=== PATIENT | male | born 1950 | race Caucasian/White ===

== ENCOUNTER 2016-12-03 11:35 | Emergency (ER) | payer BC ==
[2016-12-03 11:43] VITALS: BP 129/84
[2016-12-03] MEDS ORDERED: Ibuprofen TAB* 800 MG PO ONE (14:22)
[2016-12-03] MEDS ORDERED: Tetan/Diph/Pertus SYR(Tdap)* 0.5 ML SYR(BOOSTRIX) use SYR IM ONE (14:22)
[2016-12-03] MEDS ORDERED: Cephalexin CAP* 500 MG PO ONE ×2 (14:23→17:24)
--- NOTE | 2017-01-10 09:10 | ED ---
Upper Extremity Pain - HPI Summary HPI Summary: Pt here w/ Rt hand laceration from hitting it on a [place] fence pole earlier today. Was hammering in the pole when his hand slipped and got cut on the edge of the pole. Denies numbness, tingling, weakness. Unsure of last tetanus vaccine. - History of Current Complaint Chief Complaint: EDLacSutureRecheck Stated Complaint: RT HAND LAC Time Seen by Provider: 12/03/16 13:51 Hx Obtained From: Patient - Allergies/Home Medications Allergies/Adverse Reactions: Allergies Allergy/AdvReac Type Severity Reaction Status Date / Time Shellfish Allergy Allergy Anaphylatic Verified 12/03/16 11:39 Shock PMH/Surg Hx/FS Hx/Imm Hx Previously Healthy: Yes Endocrine/Hematology History: Denies: Hx Anticoagulant Therapy, Hx Blood Disorders, Autoimmune Disease - Immunization History Immunizations Up to Date: Unable to Obtain/Confirm Infectious Disease History: No Infectious Disease History: Denies: Hx of Known/Suspected MRSA, Traveled Outside the [place] in Last 30 Days - Social History Occupation: Retired Lives: With Family Alcohol Use: None Hx Substance Use: No Substance Use Type: Reports: None Smoking Status (MU): Unknown if Ever Smoked Review of Systems Constitutional: Negative Negative: Vomiting, Nausea Positive: no symptoms reported Musculoskeletal: Negative Skin: Other - see HPI Neurological: Negative Psychological: Normal All Other Systems Reviewed And Are Negative: Yes Physical Exam Triage Information Reviewed: Yes Vital Signs On Initial Exam: Initial Vitals Temp Pulse Resp BP Pulse Ox 98 F 88 16 129/84 97 12/03/16 11:40 12/03/16 11:40 12/03/16 11:40 12/03/16 11:40 12/03/16 11:40 Vital Signs Reviewed: Yes Appearance: Positive: Well-Appearing, No Pain Distress, Well-Nourished Skin: Positive: Warm - laceration over Rt hand Head/Face: Positive: Normal Head/Face Inspection ENT: Positive: Hearing grossly normal Respiratory/Lung Sounds: Positive: Breath Sounds Present Cardiovascular: Positive: Pulses are Symmetrical in both Upper and Lower Extremities Musculoskeletal: Positive: Normal, Strength/ROM Intact Neurological: Positive: Normal, Sensory/Motor Intact, Alert, Oriented to Person Place, Time, CN Intact II-III Psychiatric: Positive: Normal Diagnostics - Vital Signs Vital Signs Temp Pulse Resp BP Pulse Ox 12/03/16 17:07 88 12/03/16 11:40 98 F 88 16 129/84 97 - Laboratory Lab Statement: Any lab studies that have been ordered have been reviewed, and results considered in the medical decision making process. Course/Dx - Diagnoses Provider Diagnoses: Laceration of right hand Discharge - Discharge Plan Condition: Stable Disposition: HOME Prescriptions: Cephalexin CAP* [Keflex CAP*] 500 mg PO QID #40 cap Patient Education Materials: Care For Your Stitches (ED), Laceration (ED) Referrals: Nathan Uribe MD [Medical Doctor] - Additional Instructions: Keep dressing clean, dry and intact for 48 hours. After this time, you may remove the dressing - gently wash daily with soap and water - rinse well and pat dry with clean cloth then reapply triple antibiotic ointment and reapply clean gauze with LORENZO wrap. Rest, ice, elevate - if you try to use your hand, you may rupture your sutures. If you do not keep it elevated, it may swelling and bleed. You may alternate ibuprofen with acetaminophen for pain. Complete antibiotics. You may take probiotics in between doses to prevent diarrhea. and follow-up with hand specialist this week. Call tomorrow to schedule appointment. Your suture may be removed in 10 days or when hand specialist decides. *If you develop redness, swelling, streaking, purulent drainage or fever, seek medical attention sooner.
== END 2016-12-03 17:10 | disposition home or self-care (01) ==
LOC: ED 11:35
DX: S61.411A Laceration without foreign body of right hand, initial encounter (principal); W45.8XXA Other foreign body or object entering through skin, initial encounter; Y93.9 Activity, unspecified; Y92.9 Unspecified place or not applicable
CPT/HCPCS: 90471; 90715; 99282; A9270-GY

== ENCOUNTER 2018-10-24 06:26 | Inpatient (IN) | payer MEDICARE ==
--- NOTE | 2018-10-11 17:32 | HP ---
Amended report to enter cosigning physician. HISTORY AND PHYSICAL: DATE OF SURGERY: 10/24/18 DATE OF OFFICE VISIT: 10/11/18 SURGEON: Hope Shah MD* (dictated by YESSENIA Alvares). PROCEDURE: Left total hip arthroplasty. CHIEF COMPLAINT: Left hip pain. HISTORY OF PRESENT ILLNESS: Mr. Dawkins is a 68-year-old gentleman with continued complaints of left hip pain. He has failed conservative treatment and elected to proceed with a left total hip arthroplasty. PAST MEDICAL HISTORY: Basal cell carcinoma. PAST SURGICAL HISTORY: Removal of basal cell carcinoma from the nose. CURRENT MEDICATIONS: None. ALLERGIES: None. FAMILY HISTORY: Cancer. SOCIAL HISTORY: He is a 68-year-old gentleman lives with his . He does not smoke or use drugs or alcohol. REVIEW OF SYSTEMS: A complete 14-point review of systems was reviewed with the patient and it was all negative and noncontributory. He denies any history of DVT, PE, hepatitis, HIV or anesthesia problems. PHYSICAL EXAMINATION GENERAL: Well developed, well nourished in no acute distress. VITAL SIGNS: He stands 5 feet 9 inches tall, weighs 215 pounds, his blood pressure is 126/78, heart rate is 104. HEENT: Normocephalic, atraumatic. NECK: Supple. No palpable lymph nodes. PULMONARY: Lungs are clear to auscultation bilaterally. CARDIO: Regular rate and rhythm. Strong S1 and S2. ABDOMEN: Soft, nontender, nondistended. NEUROLOGIC: He is alert and oriented x3. MUSCULOSKELETAL: Left lower extremity, skin is intact. There are no open wounds or abrasions. He has 80 degrees of hip flexion. He lacks 15 degrees from neutral and has a 0 degrees of internal rotation, 20 degrees of external rotation. He is able to dorsiflex and plantarflex. He has a 2+ dorsalis pedis pulses, and intact sensation. ASSESSMENT AND PLAN: Mr. Dawkins is a 68-year-old gentleman with endstage osteoarthritis of the left hip. He has failed conservative management and elected to proceed with a left total hip arthroplasty. The surgery is scheduled for 10/24/[address] Shah discussed the risks and benefits of the surgery on today's visit. All of his questions are answered. He will follow with Dr. Shah in 2 weeks after the surgery. YESSENIA ALVARES [id number]/[facility] #: [id number] [facility]ITALEaston
[~2018-10-24 06:26] MED LIST: Buffered Lidocaine 1% SYRIN* 1 ML/SYRINGE INTRADERM ONE; Lactated Ringers 1000 ML Bag* 1,000 ML IV SCH; Tranexamic Acid 1,000 MG in NS 0.9% 50 ML* (outpatient use) IV SCH
--- OUTSIDE RECORDS SUMMARY | 2018-10-24 06:30 | XMS REPORT | Continuity of Care Document ---
:1950 External Reference #:[id number] Author Name Cristy Hernandez Care Team Providers Name Role Phone Ángel Sotelo MD Primary Care Physician Unavailable Payers Date Identification Numbers Payment Provider Subscriber Policy Number: [id number] Medicare Nathan Dawkins PayID: [id number] [address] [place] [address] Policy Number: [id number] [facility] Nathan Dawkins PayID: [id number] [address] [place] [address] Problems Active Problems Provider Date Localized, primary osteoarthritis of the pelvic Hopewanda Shah M.D. Onset: 10/2018 region and thigh Family History Date Family Member(s) Observation Comments General Cancer Social History Type Date Description Comments Sex Unknown Lives With Spouse Occupation [employer] E[employer] Use Never used alcohol Tobacco Use Start: Unknown End: Patient is a former smoker Unknown Smoking Status Reviewed: 10/11/18 Patient is a former smoker Exercise Type/Frequency Exercises sporadically Allergies, Adverse Reactions, Alerts Active Allergies Reaction Severity Comments Date Shellfish-Derived Products 12/05/2016 Iodine 12/05/2016 Medications Active Medications SIG Qnty Indications Ordering Provider Date No Active Medications Unknown 10/11/2018 History Medications Cephalexin 1 tab by mouth four Unknown - 12/11/2016 500mg Capsules times a day Metformin HCL Unknown - 10/10/2018 500mg Tablets Vital Signs Date Vital Result Comment 10/11/2018 11:37am Height 69 inches 5'9" Weight 215.50 lb Heart Rate 104 /min BP Systolic 126 mmHg BP Diastolic 78 mmHg Respiratory Rate 18 /min Pain Level 5 BMI (Body Mass Index) 31.8 kg/m2 09/23/2018 8:58am Height 69 inches 5'9" Weight 215.00 lb Heart Rate 78 /min BP Systolic 120 mmHg BP Diastolic 76 mmHg Respiratory Rate 12 /min Pain Level 5 BMI (Body Mass Index) 31.7 kg/m2 09/11/2018 1:37pm Height 69 inches 5'9" Weight 210.00 lb Heart Rate 110 /min Body Temperature 96.2 F O2 % BldC Oximetry 97 % BMI (Body Mass Index) 31.0 kg/m2 12/20/2016 3:47pm Height 70 inches 5'10" Weight 220.00 lb Heart Rate 85 /min Respiratory Rate 15 /min Body Temperature 97.1 F Pain Level 0 BMI (Body Mass Index) 31.6 kg/m2 12/12/2016 1:43pm Height 70 inches 5'10" Weight 220.00 lb Heart Rate 76 /min BP Systolic 130 mmHg BP Diastolic 72 mmHg Respiratory Rate 18 /min Body Temperature 95.7 F Pain Level 0 BMI (Body Mass Index) 31.6 kg/m2 12/05/2016 3:48pm Height 70 inches 5'10" Weight 220.50 lb Heart Rate 74 /min BP Systolic 128 mmHg BP Diastolic 76 mmHg Respiratory Rate 18 /min Body Temperature 97.9 F Pain Level 2 BMI (Body Mass Index) 31.6 kg/m2 Encounters Type Date Location Provider Dx Diagnosis Office Visit 09/23/2018 [facility] Hope Shah, M16.12 Unilateral primary 9:00a [facility] [place] osteoarthritis, left hip M25.552 Pain in left hip Office Visit 09/11/2018 [facility] Marcell Armstrong, M16.12 Unilateral primary 1:30p [facility], left [facility] hip Office Visit 11/14/2017 [facility] Marlon L82.1 Other seborrheic 4:10p MD [place] keratosis L21.8 Other seborrheic dermatitis D22.9 Melanocytic nevi, unspecified L30.8 Other specified dermatitis Office Visit 12/20/2016 2:45p [facility] [email or web address] without foreign [facility] body of right hand, subs encntr Office Visit 12/12/2016 1:45p [facility] without foreign [facility] body of right hand, subs encntr Office Visit 12/05/2016 3:15p [facility] Nathan S61.[facility] without foreign [facility] body of right hand, init encntr Plan of Treatment Future Appointment(s):11/08/2018 8:45 am - Hope Shah M.D. at [facility]10/24/2018 11:30 am - Hope Shah M.D. at [facility]10/11/2018 - Hope Shah M.D.M16.12 Unilateral primary osteoarthritis, left hipFollow up:Follow up: 2 weeks after wxciaocH51.552 Pain in left hip
--- OUTSIDE RECORDS SUMMARY | 2018-10-24 06:30 | XMS REPORT | Continuity of Care Document ---
:1950 External Reference #:[id number] Author Name Ángel Sotelo MD Address [address] [place] [address] Care Team Providers Name Role Phone Ángel Sotelo MD Care Team Information Shared Services Manager Unavailable Payers Date Identification Numbers Payment Provider Subscriber Effective: 2016 [facility] Number: [id number] [facility] Expires: 2017 Group Name: BC/BS of [facility] [address] [address] PayID: [id number] KEENA Mcmahon [id number] Effective: 2017 Policy Number: [id number] Medicare - Bswny d Nathan Dawkins PayID: [id number] [address] [place] [address] Effective: 2017 Policy Number: [facility] Medicare Nathan Dawkins [id number] Supplement PayID: [id number] [facility] [address] [place] [address] Onset: 2017 Policy Number: [id number] [employer] Nathan Dawkins PayID: [id number] [address] [place] [address] Family History Date Family Member(s) Observation Comments General Alcoholism General Liver Disease Dad of cirrhosis. General Cancer, Lung Sister is doing well at this point after lobectomy General Malignant Melanoma 3 siblings with melanoma General sepsis brother - "a long time ago" General Heart Disease brother - CT General Cancer, Pancreatic brother Social History Type Date Description Comments Sex Unknown Marital Status Lives With Female Partner Occupation Construction - Retired Tobacco Use Start: Unknown End: Former Cigarette Smoker Quit 15 YA. Started age 22. Smoked 2 PPD for 30 years. ETOH Use Has consumed alcohol in Former heavy alcohol the past user 30+ years ago, now nondrinker. Tobacco Use Start: Unknown End: Patient is a former Unknown smoker Smoking Status Reviewed: 07/26/18 Patient is a former smoker Exercise Exercises sporadically rare additional Type/Frequency exercise but does walk his dog everyday Allergies, Adverse Reactions, Alerts Active Allergies Reaction Severity Comments Date Shellfish-derived Products 07/26/2016 Medications Active Medications SIG Qnty Indications Ordering Provider Date No Active Medications Unknown 09/30/2018 History Medications No Active Medications Unknown 07/26/2018 - 07/26/2018 Metformin HCL take 1 tablet 60tabs Ángel 07/26/2018 - 500mg by mouth two MD Ashleigh 09/30/2018 Tablets times daily Ventolin HFA inhale two 18units J20.9 Shawnti R. 05/16/2018 - puffs by mouth JERMAINE Franco 07/26/2018 108(90Base) mcg/Act every 4 hours Aerosol as needed for wheeze Simvastatin Take One Tablet 30tabs E78.5 Ángel 08/16/2016 - 20mg By Mouth Every MD Ashleigh 10/31/2017 Tablets Day Keflex 1 tab by mouth Unknown - 500mg Capsules 4 times a day 01/25/2018 for 5 days Immunizations CPT Code Status Date Vaccine Lot # [id number] Given 07/26/2018 Pneumovax 23 (PPSV23) 65+ years or high risk 2 to [id number] 66 year old 75127 Given 07/26/2018 Influenza Virus Vaccine, Quadrivalent, 3 Yr > Quad, Preserv Free 15885 Given 2017 Prevnar-13 Pneumococcal Conjugate Vaccine [id number] 75769 Given 2017 Influenza Vaccine High Dose PF [id number] 54269 Given 12/19/2016 Tdap (Adacel) 55863 Given 01/27/2016 Influenza Virus Vaccine, Quadrivalent, 3 Yr > Quad, Preserv Free Vital Signs Date Vital Result Comment 09/30/2018 11:05am Weight 217.00 lb Weight 98.431 kg BP Systolic 124 mmHg BP Diastolic 80 mmHg Heart Rate 98 /min Body Temperature 98.1 F Respiratory Rate 16 /min O2 % BldC Oximetry 98 % 08/12/2018 2:14pm Weight 215.12 lb Weight 97.581 kg BP Systolic 122 mmHg BP Diastolic 80 mmHg Heart Rate 107 /min Body Temperature 97.6 F Respiratory Rate 16 /min O2 % BldC Oximetry 97 % 07/26/2018 3:15pm Weight 223.38 lb Weight 101.323 kg BP Systolic 126 mmHg BP Diastolic 78 mmHg Heart Rate 100 /min Body Temperature 97.5 F Respiratory Rate 18 /min Height 68.5 inches 5'8.50" BMI (Body Mass Index) 33.5 kg/m2 O2 % BldC Oximetry 97 % 05/16/2018 9:01am Weight 216.00 lb Weight 97.978 kg BP Systolic 140 mmHg BP Diastolic 78 mmHg Heart Rate 105 /min Body Temperature 96.1 F O2 % BldC Oximetry 97 % 01/25/2018 2:55pm Weight 211.00 lb Weight 95.710 kg BP Systolic 128 mmHg BP Diastolic 80 mmHg Heart Rate 90 /min Body Temperature 97.5 F Respiratory Rate 16 /min O2 % BldC Oximetry 97 % 10/31/2017 3:34pm Weight 223.00 lb Weight 101.153 kg BP Systolic 129 mmHg BP Diastolic 82 mmHg Heart Rate 96 /min Body Temperature 98.0 F O2 % BldC Oximetry 97 % 10/25/2017 3:15pm Weight 225.00 lb Weight 102.060 kg BP Systolic 152 mmHg BP Diastolic 94 mmHg Heart Rate 97 /min Body Temperature 98.7 F O2 % BldC Oximetry 98 % 10/17/2017 7:56am Weight 221.00 lb Weight 100.246 kg BP Systolic 122 mmHg BP Diastolic 78 mmHg Heart Rate 72 /min Body Temperature 97.3 F Respiratory Rate 16 /min 07/25/2017 8:03am Weight 222.00 lb Weight 100.699 kg BP Systolic 122 mmHg BP Diastolic 74 mmHg Heart Rate 70 /min Body Temperature 96.9 F Respiratory Rate 16 /min Height 69.5 inches 5'9.50" BMI (Body Mass Index) 32.3 kg/m2 O2 % BldC Oximetry 98 % 2017 9:31am Weight 214.00 lb Weight 97.070 kg BP Systolic 122 mmHg BP Diastolic 78 mmHg Heart Rate 68 /min Body Temperature 97.2 F Respiratory Rate 16 /min 08/16/2016 11:44am Weight 222.00 lb Weight 100.699 kg BP Systolic 112 mmHg BP Diastolic 76 mmHg Heart Rate 74 /min Body Temperature 96.6 F Respiratory Rate 16 /min O2 % BldC Oximetry 99 % 07/26/2016 8:58am Weight 216.00 lb Weight 97.978 kg BP Systolic 120 mmHg BP Diastolic 70 mmHg Heart Rate 76 /min Body Temperature 98.2 F Respiratory Rate 12 /min Height 68 inches 5'8" BMI (Body Mass Index) 32.8 kg/m2 Results Test Date Facility Test Result H/L Range Note Laboratory test 07/26/2018 In House Lab Hemoglobin A1c 5.1 finding [phone] - Poct CBC Auto Diff 01/14/2018 [facility] White Blood 4.7 10^3/uL N 3.5-10.8 [phone] Count Red Blood Count 4.83 10^6/uL N 4.00-5.40 Hemoglobin 13.9 g/dL Low 14.0-18.0 Hematocrit 41 % Low 42-52 Mean Corpuscular Volume 84 fL N 80-94 Mean Corpuscular Hemoglobin 29 pg N 27-31 Mean Corpuscular HGB Conc 34 g/dL N 31-36 Red Cell Distribution Width 13 % N 10.5-15 Platelet Count 187 10^3/uL N 150-450 Mean Platelet Volume 7.7 um3 N 7.4-10.4 Abs Neutrophils 2.6 10^3/uL N 1.5-7.7 Abs Lymphocytes 1.2 10^3/uL N 1.0-4.8 Abs Monocytes 0.6 10^3/uL N 0-0.8 Abs Eosinophils 0.2 10^3/uL N 0-0.6 Abs Basophils 0 10^3/uL N 0-0.2 Abs Nucleated RBC 0 10^3/uL Granulocyte % 56.0 % N 38-83 Lymphocyte % 26.3 % N 25-47 Monocyte % 12.3 % High 0-7 Eosinophil % 4.7 % N 0-6 Basophil % 0.7 % N 0-2 Nucleated Red Blood Cells % 0.2 Comp Metabolic Panel 01/14/2018 [facility] Sodium 140 mmol/L N 135-145 [phone] Potassium 4.2 mmol/L N 3.5-5.0 Chloride 108 mmol/L N 101-111 Co2 Carbon Dioxide 26 mmol/L N 22-32 Anion Gap 6 mmol/L N 2-11 Glucose 108 mg/dL High 70-100 Blood Urea Nitrogen 15 mg/dL N 6-24 Creatinine 0.80 mg/dL N 0.67-1.17 BUN/Creatinine Ratio 18.8 N 8-20 Calcium 9.0 mg/dL N 8.6-10.3 Total Protein 6.4 g/dL N 6.4-8.9 Albumin 3.9 g/dL N 3.2-5.2 Globulin 2.5 g/dL N 2-4 Albumin/Globulin Ratio 1.6 N 1-3 Total Bilirubin 0.50 mg/dL N 0.2-1.0 Alkaline Phosphatase 63 U/L N 34-104 Alt 22 U/L N 7-52 Ast 16 U/L N 13-39 Egfr Non- 97.0 >60 Egfr 117.4 >60 1 Lipid Profile 01/14/2018 [facility] Triglycerides 115 mg/dL 2 (Trig/Chol/HDL) [phone] Cholesterol 174 mg/dL 3 HDL Cholesterol 33.8 mg/dL 4 LDL Cholesterol 117 mg/dL 5 Liver Function 01/14/2018 [facility] Direct 0.10 mg/ dL N 0.03-0.18 Panel [phone] Bilirubin Indirect Bilirubin 0.4 mg/dL N 0.3-1.0 Laboratory test 01/14/2018 [facility] Erythrocyte Sed 12 mm/Hr N 0-40 6 finding [phone] Rate Laboratory test 10/17/2017 [facility] Lyme Disease Negative Negative 7 finding [phone] Serology Erythrocyte Sed Rate 10 mm/Hr N 0-40 8 Comp Metabolic Panel 10/17/2017 [facility] Sodium 141 mmol/L N 139-145 [phone] Potassium 4.0 mmol/L N 3.5-5.0 Chloride 108 mmol/L N 101-111 Co2 Carbon Dioxide 27 mmol/L N 22-32 Anion Gap 6 mmol/L N 2-11 Glucose 104 mg/dL High 70-100 Blood Urea Nitrogen 15 mg/dL N 6-24 Creatinine 0.87 mg/dL N 0.67-1.17 BUN/Creatinine Ratio 17.2 N 8-20 Calcium 8.9 mg/dL N 8.6-10.3 Total Protein 6.6 g/dL N 6.4-8.9 Albumin 4.0 g/dL N 3.2-5.2 Globulin 2.6 g/dL N 2-4 Albumin/Globulin Ratio 1.5 N 1-3 Total Bilirubin 0.50 mg/dL N 0.2-1.0 Alkaline Phosphatase 55 U/L N 34-104 Alt 22 U/L N 7-52 Ast 18 U/L N 13-39 Egfr Non- 88.1 >60 Egfr 113.3 >60 9 CBC Auto Diff 10/17/2017 [facility] White Blood 5.3 10^3/uL N 3.5-10.8 [phone] Count Red Blood Count 4.74 10^6/uL N 4.0-5.4 Hemoglobin 13.7 g/dL Low 14.0-18.0 Hematocrit 40 % Low 42-52 Mean Corpuscular Volume 85 fL N 80-94 Mean Corpuscular Hemoglobin 29 pg N 27-31 Mean Corpuscular HGB Conc 34 g/dL N 31-36 Red Cell Distribution Width 13 % N 10.5-15 Platelet Count 211 10^3/uL N 150-450 Mean Platelet Volume 7.2 um3 Low 7.4-10.4 Abs Neutrophils 2.9 10^3/uL N 1.5-7.7 Abs Lymphocytes 1.5 10^3/uL N 1.0-4.8 Abs Monocytes 0.6 10^3/uL N 0-0.8 Abs Eosinophils 0.2 10^3/uL N 0-0.6 Abs Basophils 0.1 10^3/uL N 0-0.2 Abs Nucleated RBC 0 10^3/uL Granulocyte % 54.8 % N 38-83 Lymphocyte % 28.2 % N 25-47 Monocyte % 12.0 % High 0-7 Eosinophil % 3.9 % N 0-6 Basophil % 1.1 % N 0-2 Nucleated Red Blood Cells % 0.1 Laboratory test 10/17/2017 [facility] C Reactive 6.49 mg/L High < 5.00 10 finding [phone] Protein Creatine Kinase(CK) 154 U/L N 10-223 11 Laboratory test 2017 [facility] Vitamin D 25.1 ng/mL N 20-50 12 finding [phone] Total 25(Oh) Liver Function 2017 [facility] Total Protein 6.5 g/dL N 6.4-8.9 Panel [phone] Albumin 4.0 g/dL N 3.2-5.2 Globulin 2.5 g/dL N 2-4 Albumin/Globulin Ratio 1.6 N 1-3 Total Bilirubin 0.50 mg/dL N 0.2-1.0 Direct Bilirubin 0.10 mg/dL N 0.03-0.18 Indirect Bilirubin 0.4 mg/dL N 0.3-1.0 Alkaline Phosphatase 59 U/L N 34-104 Lipid Profile 2017 [facility] Triglycerides 78 mg/dL N 13 (Trig/Chol/HDL) [phone] Cholesterol 104 mg/dL N 14 HDL Cholesterol 37.7 mg/dL N 15 LDL Cholesterol 51 mg/dL N 16 Statin 2017 [facility] Ast 18 U/L N 13-39 [phone] Alt 18 U/L N 7-52 Comp Metabolic 07/26/2016 [facility] Sodium 138 mmol/ L N 133-145 17 Panel [phone] Potassium 4.3 mmol/L N 3.5-5.0 Chloride 104 mmol/L N 101-111 Co2 Carbon Dioxide 29 mmol/L N 22-32 Anion Gap 5 mmol/L N 2-11 Glucose 97 mg/dL N 70-100 Blood Urea Nitrogen 12 mg/dL N 6-24 Creatinine 0.89 mg/dL N 0.67-1.17 BUN/Creatinine Ratio 13.5 N 8-20 Calcium 9.4 mg/dL N 8.6-10.3 Total Protein 7.3 g/dL N 6.4-8.9 Albumin 4.3 g/dL N 3.2-5.2 Globulin 3.0 g/dL N 2-4 Albumin/Globulin Ratio 1.4 N 1-3 Total Bilirubin 0.60 mg/dL N 0.2-1.0 Alkaline Phosphatase 62 U/L N 34-104 Alt 26 U/L N 7-52 Ast 18 U/L N 13-39 Egfr Non- 86.1 N >60 Egfr 110.7 N >60 18 CBC Auto Diff 07/26/2016 [facility] White Blood 6.8 10^3/uL N 3.5-10.8 [phone] Count Red Blood Count 5.44 10^6/uL High 4.0-5.4 Hemoglobin 15.3 g/dL N 14.0-18.0 Hematocrit 46 % N 42-52 Mean Corpuscular Volume 85 fL N 80-94 Mean Corpuscular Hemoglobin 28 pg N 27-31 Mean Corpuscular HGB Conc 33 g/dL N 31-36 Red Cell Distribution Width 13 % N 10.5-15 Platelet Count 215 10^3/uL N 150-450 Mean Platelet Volume 7 um3 Low 7.4-10.4 Abs Neutrophils 3.5 10^3/uL N 1.5-7.7 Abs Lymphocytes 2.3 10^3/uL N 1.0-4.8 Abs Monocytes 0.7 10^3/uL N 0-0.8 Abs Eosinophils 0.2 10^3/uL N 0-0.6 Abs Basophils 0 10^3/uL N 0-0.2 Abs Nucleated RBC 0.01 10^3/uL N Granulocyte % 52.4 % N 38-83 Lymphocyte % 34.1 % N 25-47 Monocyte % 9.9 % High 1-9 Eosinophil % 3.1 % N 0-6 Basophil % 0.5 % N 0-2 Nucleated Red Blood Cells % 0.1 N Lipid Profile 07/26/2016 [facility] Triglycerides 145 mg/dL N 19 (Trig/Chol/HDL) [phone] Cholesterol 207 mg/dL N 20 HDL Cholesterol 40.8 mg/dL N 21 LDL Cholesterol 137 mg/dL N 22 Laboratory test 07/26/2016 [facility] Vitamin D 17.9 ng/mL Low 30-50 23 finding [phone] Total 25(Oh) 1 Because ethnic data is not always readily available, this report includes an eGFR for both -Americans and non- Americans. The National Kidney Disease Education Program (NKDEP) does not endorse the use of the MDRD equation for patients that are not between the ages of 18 and 70, are , have extremes of body size, muscle mass, or nutritional status, or are non- or non-. According to the National Kidney Foundation, irrespective of diagnosis, the stage of the disease is based on the level of kidney function: Stage Description GFR(mL/min/1.73 m(2)) 1 Kidney damage with normal or decreased GFR 90 2 Kidney damage with mild decrease in GFR 60-89 3 Moderate decrease in GFR 30-59 4 Severe decrease in GFR 15-29 5 Kidney failure <15 (or dialysis) 2 Desirable: <150 Borderline High: 150-199 High: 200-499 Very High: >500 3 Desirable: <200 Borderline High: 200-239 High: >239 4 Low: <40 Desirable: 40-60 High: >60 5 Desirable: <100 Near Optimal: 100-129 Borderline High: 130-159 High: 160-189 Very High: >189 6 FASTING [id number] 7 No evidence of antibodies to B. burgdorferi detected. False negative results may occur in recently infected patients (<=2 weeks) due to low or undetectable antibody levels to B. burgdorferi. If recent exposure is suspected, a second sample should be collected and tested in 2-4 weeks. Test Performed by: [facility] [address] [place] [address] 8 [id number] 9 Because ethnic data is not always readily available, this report includes an eGFR for both -Americans and non- Americans. The National Kidney Disease Education Program (NKDEP) does not endorse the use of the MDRD equation for patients that are not between the ages of 18 and 70, are , have extremes of body size, muscle mass, or nutritional status, or are non- or non-. According to the National Kidney Foundation, irrespective of diagnosis, the stage of the disease is based on the level of kidney function: Stage Description GFR(mL/min/1.73 m(2)) 1 Kidney damage with normal or decreased GFR 90 2 Kidney damage with mild decrease in GFR 60-89 3 Moderate decrease in GFR 30-59 4 Severe decrease in GFR 15-29 5 Kidney failure <15 (or dialysis) 10 Acute inflammation: >10.00 11 [id number] 13 Desirable <150 Borderline high 150-199 High 200-499 Very High >500 14 Desirable <200 Borderline high 200-239 High >239 15 Low <40 Desirable: 40-60 High: >60 16 Desirable: <100 mg/dL Near Optimal: 100-129 mg/dL Borderline High: 130-159 mg/dL High: 160-189 mg/dL Very High: >189 mg/dL 17 [id number] 18 Because ethnic data is not always readily available, this report includes an eGFR for both -Americans and non- Americans. The National Kidney Disease Education Program (NKDEP) does not endorse the use of the MDRD equation for patients that are not between the ages of 18 and 70, are , have extremes of body size, muscle mass, or nutritional status, or are non- or non-. According to the National Kidney Foundation, irrespective of diagnosis, the stage of the disease is based on the level of kidney function: Stage Description GFR(mL/min/1.73 m(2)) 1 Kidney damage with normal or decreased GFR 90 2 Kidney damage with mild decrease in GFR 60-89 3 Moderate decrease in GFR 30-59 4 Severe decrease in GFR 15-29 5 Kidney failure <15 (or dialysis) 19 Desirable <150 Borderline high 150-199 High 200-499 Very High >500 20 Desirable <200 Borderline high 200-239 High >239 21 Low <40 Desirable: 40-60 High: >60 22 Desirable: <100 mg/dL Near Optimal: 100-129 mg/dL Borderline High: 130-159 mg/dL High: 160-189 mg/dL Very High: >189 mg/dL 23 [id number] Procedures Date Code Description Status 05/16/2018 68296 Nebulizer Treatment Completed Encounters Type Date Location Provider Dx Diagnosis Office Visit 08/12/2018 Main Office Ángel Sotelo, S76.202A Unsp injury of 2:15p adductor musc/fasc/tend left thigh, init Office Visit 07/26/2018 Main Office Ángel Sotelo, Z00.00 Encntr for general 3:30p adult medical exam w/o abnormal findings E66.8 Other obesity E78.5 Hyperlipidemia, unspecified Z23 Encounter for immunization Office Visit 05/16/2018 Main Office Karuna Lowery J20.9 Acute bronchitis, 9:00a Storm, MUSIC COPYIST-C unspecified Office Visit 01/25/2018 Main Office Isis E78.5 Hyperlipidemia, 3:00p Shortle, MANAGER CULTURE unspecified Office Visit 10/31/2017 Main Office Ángel S61.012A Laceration w/o fb 3:30p MD Ashleigh of left thumb w/o damage to nail, init Office Visit 10/25/2017 [facility] Ángel E66.8 Other obesity 3:15p MD Ashleigh M79.1 Myalgia Office Visit 10/17/2017 8:00a Main Office Ángel Sotelo MD M25.562 Pain in left knee M79.1 Myalgia Office Visit 2017 9:30a Main Office Ángel E78.5 HyperlipidemiaAshleigh MD unspecified E55.9 Vitamin D deficiency, unspecified B02.9 Zoster without complications Z23 Encounter for immunization Office Visit 08/16/2016 11:30a Main Office Ángel E78.5 HyperlipidemiaAshleigh MD unspecified E55.9 Vitamin D deficiency, unspecified Office Visit 07/26/2016 9:00a Main Office Ángel Sotelo Z00.8 Encounter for other general examination E66.8 Other obesity Plan of Treatment 09/30/2018 - Ángel Sotelo MDZ01.818 Encounter for other preprocedural examinationComments:The patient is estimated to be LOW risk for a LOW risk surgery. There are no medications that need to be adjusted prior to surgery.No chronic medical issues need to be optimized prior to the operation.She is not on any blood thinning medications that need to be held for surgery. There were no factorsidentified to delay an elective procedure. We would recommend proceeding with the planned procedure with the usual level of care.
[2018-10-24] MEDS ORDERED: ceFAZolin 2 GM PREMIX in ORs 2 GM/50 ML BAG ONE (07:10)
[2018-10-24] MEDS ORDERED: Midazolam* 1 MG/ML 5 ML VIAL (5 MG) ONE (08:32)
[2018-10-24] MEDS ORDERED: fentaNYL* 50 MCG/ML 2 ML VIAL (100 MCG VIAL) ONE (08:32)
[2018-10-24] MEDS ORDERED: ROPIVACAINE 5 MG/ML 30 ML BTL (0.5%) ONE (08:33)
[2018-10-24] MEDS ORDERED: Propofol* 10 MG/ML 20 ML BTL ONE ×2 (10:42→11:20)
[2018-10-24] MEDS ORDERED: Bupivacaine 0.5% SDV PF* 30ML VIAL ONE (10:42)
[2018-10-24] MEDS ORDERED: Midazolam* 1 MG/ML 2 ML VIAL (2 MG) ONE (10:49)
[2018-10-24] MEDS ORDERED: fentaNYL* 50 MCG/ML 2 ML VIAL (100 MCG VIAL) IV PRN (11:50)
[2018-10-24] MEDS ORDERED: HYDROmorphone INJ1* 1 MG/ML SYRINGE IV PRN ×2 (11:50→18:10)
[2018-10-24] MEDS ORDERED: Ibuprofen TAB* 600 MG PO PRN (11:50)
[2018-10-24] MEDS ORDERED: HYDROcodone/ACETAMIN 5-325 MG* 1 TAB PO PRN (11:50)
[2018-10-24] MEDS ORDERED: Naloxone* 0.4 MG/ML 1 ML VIAL IV PRN (11:50)
[2018-10-24] MEDS ORDERED: Acetaminophen TAB* 325 MG PO PRN (11:50)
[2018-10-24] MEDS ORDERED: Bisacodyl SUPP* 10 MG SUPP PR PRN (11:56)
[2018-10-24] MEDS ORDERED: diPHENhydraMINE IV* 50 MG/ML 1 ml VIAL (BENADRYL) IV PRN (11:56)
[2018-10-24] MEDS ORDERED: traMADol TAB* 50 MG PO PRN (11:56)
[2018-10-24] MEDS ORDERED: Magnesium Hydroxide LIQ* 30 ML UDC PO PRN (11:56)
[2018-10-24] MEDS ORDERED: diPHENhydraMINE PO* 25 MG PO PRN (11:56)
[2018-10-24] MEDS ORDERED: Cyclobenzaprine TAB* 10 MG PO PRN (11:56)
[2018-10-24] MEDS ORDERED: Polyethylene Glycol 3350* 17 GM PACKET PO PRN (11:56)
[2018-10-24] MEDS ORDERED: oxyCODONE/Acetamin 5/325 MG* TAB PO PRN (12:04)
[2018-10-24] MEDS: Lactated Ringers 1000 ML Bag* 1,000 ML IV SCH (14:46)
--- NOTE | 2018-10-24 14:49 | OP ---
Operative Report - Blank - Operative Report Date of Operation: 10/24/18 Note: KIRA STEWART 1950 Date Of Surgery: 10/24/18 Hope Shah MD Steam Trap Man: Easton CASAS did help throughout the procedure with preparation of the hip, wound retraction, manipulation of the hip, and wound closure. Anesthesiologist: Dr. Viramontes Anesthesia Type: Spinal Preoperative Diagnosis: Left severe degenerative osteoarthritis of the hip Postoperative Diagnosis: As above Procedure Performed: Left Total Hip Arthroplasty Complications: None Specimen: Femoral head and acetabular reamings sent to pathology. Hardware used: This is uncemented [place] total hip arthroplasty hardware for the femur a size left size 6 accolade II with 132 neck femoral component, for the acetabulum a size 54E trident II tritanium cluster hole shell with one 15 mm screw, for the insert a size 42E MDM cementless liner, baptist MDM x3 28/ 48/42E insert, and for the femoral head a size 28 + 0 biolox delta ceramic V40 femoral head. Brief history/Indication: KIRA STEWART was known in clinic and had a history of severe left hip pain. He failed conservative treatment with anti- inflammatories, pain pills, intra-articular injections and physical therapy. He elected to undergo left total hip arthroplasty due to continued pain and decreased quality of life. Radiographs showed severe end stage osteoarthritis of the hip with bone on bone contact. Informed consent was obtained from the patient. He understood the risks of surgery included but were not limited to: bleeding, infection, damage to nearby structures, intraoperative fracture, nerve palsy, failure of the hardware, early loosening, stiffness or loss of motion, dislocation, leg length discrepancy, anesthesia complications, stroke, heart attack, blood clot and . He wished to proceed. Intra-Operative findings: Intraoperatively the patient was noted to have severe loss of cartilage of the acetabulum and femoral head. He had extensive osteophyte formation and a thin posterior acetabular wall. Description of the Procedure: KIRA STEWART was identified in the preanesthesia unit. His left hip was marked as the correct operative side. Informed consent was signed and placed in the chart. The patient was taken to the operating room and placed under anesthesia without complication. A jameson catheter was placed. The patient was placed on the peg board with all bony prominences well padded. The left lower extremity was prepped and draped in the usual sterile fashion. Preoperative time -out was made to correctly identify the patient, side and site. Appropriate intraoperative antibiotics were given within one hour of incision. A standard posterior incision was made and carried sharply down to the lateral fascia. A new 10 blade was used to make an incision in the fascia in line with the skin incision. A charnley retractor was placed. The piriformis and conjoined tendons were identified and elevated off the posterolateral femur using electrocautery. These were tagged with number 5 Ethibond. Next electrocautery was used to make a posterolateral capsular flap and this was tagged with number 5 Ethibonds. The hip was carefully dislocated. Lesser trochanter to the center of the femoral head was measured at 70 mm. The oscillating saw was used to make the femoral neck cut. The femoral head was carefully removed. The femur was retracted anteriorly and the acetabular retractors were placed. Long-handled knife was used to sharply remove any remaining labrum from the acetabular rim. The acetabulum was sequentially reamed up to a size 53. A bleeding subchondral bone bed was obtained. A trial liner was placed and had excellent fit and stability. A 54 E trident II tritanium cup with a 15 mm screw was placed and had excellent stability with appropriate anteversion and abduction angle. A size 42E MDM cementless liner was impacted into the acetabular shell. The liner was checked for stability and was stable. Next attention was turned to preparation of the femoral canal. A canal finder was used to enter the proximal femur. The femoral canal was sequentially broached up to a size 6 femoral broach trial. A trial neck and 28 + 0 trial femoral head withe the MDM insert was chosen. Lesser trochanter to center of the femoral head measurement was satisfactory. The hip was reduced and taken through a range of motion. The hip was stable in all positions with good soft tissue tension and appropriate leg lengths. The hip was dislocated and all trials were removed. The final implant chosen was a size 6 accolade II with 132 neck. This stem was impacted into the femoral canal without difficulty. The stem was stable with appropriate anteversion. The femoral head chosen was a 28 + 0 ceramic head with baptist MDM x3 28/48/42E insert. The head was impacted onto the femoral neck without difficulty. The final lesser trochanter to center of the femoral head measurement was satisfactory. The hip was reduced and taken through a range of motion. The hip was stable in all positions with good soft tissue tension and appropriate leg lengths. The hip was copiously irrigated with sterile saline. The previously tagged capsule and tendons were repaired to the posterolateral femur through two trochanteric drill holes. The lateral fascia layer was closed using number 1 vicryls. The rest of the incision was closed in a layered fashion using 0 and 2-0 vicryls. The skin was closed using 3-0 monocryl suture and Dermabond. Sterile adaptic, 4x4s and paper tape was used to cover the incision. The patients anesthesia was reversed without difficulty. He was taken to the PACU in stable condition. Intended weight-bearing will be as tolerated with posterior hip precautions.
--- NOTE | 2018-10-24 14:50 | PN ---
Progress Note - Progress Note Date of Service: 10/24/18 Note: resting comfortably in bed, no complaints, pain well controlled; able to dorsi flex/plantar flex, 2+ DP pulse and intact sensation; incision c/d/i
[2018-10-24] MEDS ORDERED: oxyCODONE/Acetamin 5/325 MG* TAB ONE (14:59)
[2018-10-24] MEDS: oxyCODONE/Acetamin 5/325 MG* TAB PO PRN (15:00)
[2018-10-24] MEDS: Acetaminophen TAB* 325 MG PO SCH ×2 (15:15→22:40)
[2018-10-24] MEDS: oxyCODONE TAB* 5 MG TAB PO PRN (17:10)
[2018-10-24] MEDS: ceFAZolin 1 GM ADVAN(*) 1 GM in NS 0.9% 50 ML* 50 ML IVPB SCH (17:12)
[2018-10-24] MEDS ORDERED: HYDROmorphone INJ1* 1 MG/ML SYRINGE ONE (18:14)
[2018-10-24] MEDS: Ondansetron INJ* 2 MG/ML VIAL IV PRN (18:58)
[2018-10-24] MEDS: Magnesium Hydroxide LIQ* 30 ML UDC PO SCH (20:46)
[2018-10-24] MEDS ORDERED: Docusate CAP* 100 MG PO SCH (21:00)
[2018-10-25] MEDS: oxyCODONE TAB* 5 MG TAB PO PRN ×2 (00:19→09:00)
[2018-10-25] MEDS: Lactated Ringers 1000 ML Bag* 1,000 ML IV SCH ×2 (01:08→15:02)
[2018-10-25] MEDS: ceFAZolin 1 GM ADVAN(*) 1 GM in NS 0.9% 50 ML* 50 ML IVPB SCH ×2 (02:35→09:21)
[2018-10-25] MEDS: oxyCODONE/Acetamin 5/325 MG* TAB PO PRN ×3 (02:35→13:29)
[2018-10-25 06:06] LABS: Hematocrit 37 % (42-52); Hemoglobin 12.8 g/dL (14.0-18.0); Mean Platelet Volume 6.6 fL (7.4-10.4); Platelet Count 215 10^3/uL (150-450)
[2018-10-25] MEDS: Acetaminophen TAB* 325 MG PO SCH ×2 (06:22→14:55)
[2018-10-25 06:24] LABS: BUN/Creatinine Ratio 15.2 (8-20); Calcium 8.2 mg/dL (8.6-10.3); EGFR African American 118.7 (>60); EGFR Non-African American 98.1 (>60); Potassium 4.2 mmol/L (3.5-5.0)
[2018-10-25] MEDS: Ondansetron INJ* 2 MG/ML VIAL IV PRN ×2 (08:59→15:06)
[2018-10-25] MEDS: Apixaban* 2.5 MG TAB PO SCH ×2 (09:20→21:02)
[2018-10-25] MEDS: Magnesium Hydroxide LIQ* 30 ML UDC PO SCH ×2 (09:22→21:02)
[2018-10-25 09:35] LABS: ABS Lymphocytes 1.6 10^3/ul (1.0-4.8); ABS Monocytes 0.9 10^3/ul (0-0.8); ABS Neutrophils 9.2 10^3/ul (1.5-7.7); Eosinophil % 0.2 %; Hematocrit 39 % (42-52); Hemoglobin 13.3 g/dL (14.0-18.0); Lymphocyte % 13.6 %; Mean Corpuscular HGB Conc 34 g/dL (31-36); Mean Corpuscular Hemoglobin 29 pg (27-31); Mean Corpuscular Volume 83 fL (80-94); Mean Platelet Volume 6.7 fL (7.4-10.4); Platelet Count 250 10^3/uL (150-450); Red Blood Count 4.65 10^6 /uL (4.18-5.48); Red Cell Distribution Width 14 % (10-15); White Blood Count 11.7 10^3/uL (3.5-10.8)
[2018-10-25] MEDS ORDERED: Senna TAB 8.6 mg* TAB PO PRN (09:42)
[2018-10-25 09:53] LABS: BUN/Creatinine Ratio 15.3 (8-20); Calcium 8.6 mg/dL (8.6-10.3); EGFR African American 109.1 (>60); EGFR Non-African American 90.2 (>60); Potassium 4.2 mmol/L (3.5-5.0)
[2018-10-25] MEDS ORDERED: Lactated Ringers 1000 ML Bag* 1,000 ML IV ONE ×2 (11:00→15:00)
--- NOTE | 2018-10-25 11:07 | CONS ---
CC: Dr. Hope Shah; Dr. Ángel Sotelo CONSULTATION REPORT: DATE OF CONSULT: 10/25/2018 REQUESTING PHYSICIAN: Dr. Hope Shah. PRIMARY CARE PHYSICIAN: Dr. Ángel Sotelo. REASON FOR CONSULT: New onset of hypoxia and tachycardia post procedurally. HISTORY OF PRESENT ILLNESS: Mr. Dawkins is a healthy 68-year-old man who had a scheduled left total hip arthroplasty yesterday for chronic progressive left hip osteoarthritis. He was admitted yesterday morning for this procedure and underwent operation yesterday in the afternoon. It appears he tolerated the procedure well, although he has been experiencing postoperative pain for which he is currently receiving Percocet, oxycodone, and IV Dilaudid. He reports that overnight he did experience a nonproductive cough which has since resolved this morning. This morning he reports persistent hip pain and associated anxiety. He also states that he has been experiencing mild nausea since being started on narcotics. However, he has not experienced emesis and he thinks his appetite is normal. He denies shortness of breath, chest pain, palpitations, fevers, chills, night sweats, myalgias, abdominal pain, constipation, or diarrhea. The patient does report feeling thirsty. He states his Valente catheter was recently removed, so he does not know what his urine output has been recently. He denies dysuria. PAST MEDICAL HISTORY: 1. Basal cell carcinoma on nose, status post removal. 2. History of significant tobacco use. 3. Left hip osteoarthritis, status post total hip arthroplasty on 10/24/18. CURRENT MEDICATIONS: Tylenol PM as needed for sleep. ALLERGIES: No known drug allergies. The patient reports shellfish causes hives and rapid breathing. FAMILY HISTORY: The patient's mother from breast cancer. The patient's father from alcoholic cirrhosis complications. He has a sister with lung cancer. One brother dried of a "mysterious" infection. Another brother from "lifestyle complications" possibly related to alcohol use. SOCIAL HISTORY: The patient is retired from the nonprofit sector. He lives with his Octavia who is his health care proxy. He quit tobacco use in 2003 with approximately 25-pack year history prior to that. He denies alcohol use or recreational drug use. REVIEW OF SYSTEMS: A 10-point review of systems was performed. Pertinent positives and negatives as listed in the HPI. PHYSICAL EXAM: Afebrile. HR 110s. BP 113/68. RR 14. SaO2 93% on 2L. General, he is a well-appearing man in no acute distress. A and O x3. Interactive and pleasant. Answers the questions appropriately. Neck: No JVD. Full range of motion intact, without pain. Lungs: Crackles at left lung base, otherwise clear to auscultation, no wheeze. Heart: Tachycardic. Regular rhythm. No murmurs, gallops, or rubs. Abdomen: Soft, nontender, nondistended. Extremities: Warm, well perfused. No evidence of edema. Hip dressing in place , clean, dry, and intact. DIAGNOSTIC STUDIES/LAB DATA: Labs reviewed and significant for leukocytosis, mild, 11.7 without a left shift. Sodium 134. Chest x-ray pending. EKG with sinus tachycardia at 113 with T-wave flattening in II, III, aVF; unchanged from prior. ASSESSMENT AND PLAN: Mr. Dawkins is a 68-year-old healthy man with a history of left hip osteoarthritis, now status post total left hip arthroplasty yesterday, with postoperative complication of hypoxia and tachycardia. 1. Hypoxia. Highest on differential at this point is an aspiration pneumonitis , as symptoms started immediately after recent anesthesia use, and the patient is without signs of systemic infection. We will continue to monitor patient symptoms and vital signs closely. Blood cultures have been ordered. Chest x- ray is still pending. The patient was encouraged to continue to use incentive spirometry as atelectasis can also cause hypoxia and the patient has recently had anesthesia and is continuing to receive opioids. Discussed with the patient signs of infection and to notify health care team if any new symptoms develop. Also on differential is pulmonary embolism, although procedure and immobility are quite recent. If the patient does not improve without intervention, we will consider CT-PE scan and/or TTE for further evaluation. 2. Tachycardia. The patient does report anxiety and also being in pain. He also is reporting thirst, so may have component of dehydration. Again, pulmonary embolism is on our differential, although low concern at this point, but we will continue to monitor closely for developing symptoms. Continue maintenance fluids and give IV bolus (ordered). Monitor urine output. 3. Status post left total hip arthroplasty. Continue to manage pain per ortho team. The patient is on a bowel regimen. We will continue apixaban 2.5 mg twice a day for DVT prophylaxis. Physical therapy ordered. 4. The patient is a full code. TIME SPENT: Approximately 60 minutes spent on consultation on this patient, more than half of which was spent at bedside for interview and exam and communication with primary team. [id number]/[facility] #: [id number] ARVIND
--- NOTE | 2018-10-25 12:10 | PN ---
Progress Note - Progress Note Date of Service: 10/25/17 SOAP: Subjective: []Patient seen OOB in wheelchair. He has returned from CXR and EKG ordered this morning as he was tachycardic and had an overnight episode of non productive cough. He feels that cough has resolved. He is on NC O2, denies SOB , chest pain dizziness, palpitations. He is uncomfortable in WC, but requesting use of bathroom. Objective: [] Vital Signs Temp 99 F 10/25/18 11:28 Pulse 114 10/25/18 11:28 Resp 16 10/25/18 11:28 BP 101/60 10/25/18 11:28 Pulse Ox 93 10/25/18 11:28 Intake & Output 10/24/18 10/25/18 10/25/18 18:59 06:59 18:59 Intake Total 2250 2380 753 Output Total 850 1700 Balance 1400 680 753 Weight 215 lb Intake: IV Fluids 2250 980 753 ABX - CEFAZOLIN 55 LR 2200 980 698 NS 50ML, Cefazolin 2G 50 Oral 1400 Output: Valente 600 1700 Emesis 250 Other: # Bowel Movements 0 Laboratory Results - last 24 hr 10/25/18 10/25/18 10/25/18 05:51 05:51 09:16 WBC RBC Hgb 12.8 L Hct 37 L MCV MCH MCHC RDW Plt Count 215 MPV 6.6 L Neut % (Auto) Lymph % (Auto) Tucker % (Auto) Eos % (Auto) Baso % (Auto) Absolute Neuts (auto) Absolute Lymphs (auto) Absolute Monos (auto) Absolute Eos (auto) Absolute Basos (auto) Absolute Nucleated RBC Nucleated RBC % Sodium 134 L Potassium 4.2 Chloride 102 Carbon Dioxide 25 Anion Gap 7 BUN 12 Creatinine 0.79 Est GFR ( Amer) 118.7 Est GFR (Non-Af Amer) 98.1 BUN/Creatinine Ratio 15.2 Glucose 126 H Lactic Acid Calcium 8.2 L Magnesium B-Natriuretic Peptide 44 10/25/18 10/25/18 10/25/18 09:22 09:22 09:22 WBC 11.7 H RBC 4.65 Hgb 13.3 L Hct 39 L MCV 83 MCH 29 MCHC 34 RDW 14 Plt Count 250 MPV 6.7 L Neut % (Auto) 78.0 Lymph % (Auto) 13.6 Tucker % (Auto) 7.8 Eos % (Auto) 0.2 Baso % (Auto) 0.4 Absolute Neuts (auto) 9.2 H Absolute Lymphs (auto) 1.6 Absolute Monos (auto) 0.9 H Absolute Eos (auto) 0.0 Absolute Basos (auto) 0.0 Absolute Nucleated RBC 0.0 Nucleated RBC % 0.0 Sodium 133 L Potassium 4.2 Chloride 101 Carbon Dioxide 26 Anion Gap 6 BUN 13 Creatinine 0.85 Est GFR ( Amer) 109.1 Est GFR (Non-Af Amer) 90.2 BUN/Creatinine Ratio 15.3 Glucose 126 H Lactic Acid 1.9 Calcium 8.6 Magnesium 2.0 B-Natriuretic Peptide Left hip dressing remains dry and intact active DF left ankle calf NT and soft sensation intact distally EKG- tachy, no specific changes CXR- patchy lower lobe infiltrate- possible aspiration pneumonitis Assessment: []s/p left total hip arthroplasty POD #1 possible aspiration pneumonitis Plan: []WBAT LLE posterior hip precautions Eliquis for DVT prophylaxis appreciate Dr. Pederson's help with pulmonary problems- still being worked up Dressing change 10/26
[2018-10-25] MEDS ORDERED: Lactated Ringers 1000 ML Bag* 1,000 ML IV SCH (15:00)
[2018-10-26] MEDS: Acetaminophen TAB* 325 MG PO SCH ×4 (00:07→21:55)
[2018-10-26] MEDS: Lactated Ringers 1000 ML Bag* 1,000 ML IV SCH (01:33)
[2018-10-26 08:42] LABS: ABS Eosinophils 0.1 10^3/ul (0-0.6); ABS Monocytes 0.7 10^3/ul (0-0.8); ABS Neutrophils 4.7 10^3/ul (1.5-7.7); Hematocrit 32 % (42-52); Lymphocyte % 14.9 %; Mean Corpuscular HGB Conc 34 g/dL (31-36); Mean Corpuscular Hemoglobin 29 pg (27-31); Mean Corpuscular Volume 84 fL (80-94); Mean Platelet Volume 6.4 fL (7.4-10.4); Platelet Count 166 10^3/uL (150-450); Red Blood Count 3.81 10^6 /uL (4.18-5.48); Red Cell Distribution Width 14 % (10-15); White Blood Count 6.5 10^3/uL (3.5-10.8)
[2018-10-26 08:55] LABS: BUN/Creatinine Ratio 15.3 (8-20); Calcium 8.2 mg/dL (8.6-10.3); EGFR African American 109.1 (>60); EGFR Non-African American 90.2 (>60); Magnesium 2.4 mg/dL (1.9-2.7)
--- NOTE | 2018-10-26 09:09 | PN ---
Progress Note - Progress Note Date of Service: 10/26/18 SOAP: Subjective: [Pt reports he is doing well. L hip pain managed with po meds - primarily tylenol at this point. Feels breathing is much improved. No more coughing. Denies SOB, CP, dizziness. Has had 2 BMs. Feels that he could go home later today. Has not yet done stairs with PT.] Objective: [A and O x 3, NAD. Resting comfortably in bed L hip dressing changed. Surgical incision benign. Calves soft, NT. Distal gross mortor and NV function intact. Laboratory Results - last 24 hr 10/25/18 10/25/18 10/25/18 09:16 09:22 09:22 WBC 11.7 H RBC 4.65 Hgb 13.3 L Hct 39 L MCV 83 MCH 29 MCHC 34 RDW 14 Plt Count 250 MPV 6.7 L Neut % (Auto) 78.0 Lymph % (Auto) 13.6 Izard % (Auto) 7.8 Eos % (Auto) 0.2 Baso % (Auto) 0.4 Absolute Neuts (auto) 9.2 H Absolute Lymphs (auto) 1.6 Absolute Monos (auto) 0.9 H Absolute Eos (auto) 0.0 Absolute Basos (auto) 0.0 Absolute Nucleated RBC 0.0 Nucleated RBC % 0.0 Sodium 133 L Potassium 4.2 Chloride 101 Carbon Dioxide 26 Anion Gap 6 BUN 13 Creatinine 0.85 Est GFR ( Amer) 109.1 Est GFR (Non-Af Amer) 90.2 BUN/Creatinine Ratio 15.3 Glucose 126 H Lactic Acid Calcium 8.6 Magnesium 2.0 B-Natriuretic Peptide 44 10/25/18 10/26/18 10/26/18 09:22 08:34 08:34 WBC 6.5 RBC 3.81 L Hgb 11.0 L Hct 32 L MCV 84 MCH 29 MCHC 34 RDW 14 Plt Count 166 MPV 6.4 L Neut % (Auto) 72.6 Lymph % (Auto) 14.9 Izard % (Auto) 10.1 Eos % (Auto) 2.0 Baso % (Auto) 0.4 Absolute Neuts (auto) 4.7 Absolute Lymphs (auto) 1.0 Absolute Monos (auto) 0.7 Absolute Eos (auto) 0.1 Absolute Basos (auto) 0.0 Absolute Nucleated RBC 0.0 Nucleated RBC % 0.0 Sodium 136 Potassium 4.0 Chloride 102 Carbon Dioxide 30 Anion Gap 4 BUN 13 Creatinine 0.85 Est GFR ( Amer) 109.1 Est GFR (Non-Af Amer) 90.2 BUN/Creatinine Ratio 15.3 Glucose 121 H Lactic Acid 1.9 Calcium 8.2 L Magnesium 2.4 B-Natriuretic Peptide Vital Signs: Temp Pulse Resp BP Pulse Ox 97.9 F 98 16 111/66 98 10/26/18 07:42 10/26/18 07:42 10/26/18 07:42 10/26/18 07:42 10/26/18 07:42 ] Assessment: [s/p L VICENTA POD #2] Plan: [PT/OT - stairs Eliquis for DVT prophylaxis Percocet or Tylenol for pain OK from orthopedic standpoint to be D/Abdi home today with services Dr. Pederson has recommended f/u for pulmonary issues]
[2018-10-26] MEDS: Apixaban* 2.5 MG TAB PO SCH ×2 (10:07→21:55)
[2018-10-26] MEDS: Magnesium Hydroxide LIQ* 30 ML UDC PO SCH ×2 (10:08→21:57)
[2018-10-26] MEDS: Ondansetron INJ* 2 MG/ML VIAL IV PRN (12:31)
--- NOTE | 2018-10-26 14:40 | CONSULT ---
Subjective Date of Service: 10/26/18 Interval History: Asked to consult yesterday for hypoxia. Thought likely from aspiration during procedure, and patient improved without intervention. Now on room air. Denies cough, SOB, chest pain, palpitations, fevers, or chills. Still with pain after procedure but controlled with opioids. Is experiencing nausea intermittently but has not vomited since yesterday. Review of Systems - Measurements Intake and Output: Intake and Output Last 24 Hours 10/24/18 10/25/18 10/26/18 10/27/18 06:59 06:59 06:59 06:59 Intake Total 4630 3797 1463 Output Total 2550 725 800 Balance 2080 3072 663 Weight 215 lb Intake: IV Fluids 3230 2997 773 ABX - CEFAZOLIN 165 LR 3180 2832 773 NS 50ML, Cefazolin 2G 50 Oral 1400 800 690 Output: Urine 725 800 Valente 2300 Emesis 250 Other: Estimated Void Medium Date of Last Bowel 10/26/2018 Movement # Bowel Movements 0 2 Estimated Stool Amount Large # Voids 2 Objective Active Medications: Acetaminophen (Tylenol Tab*) 975 mg PO Q8H [facility] Last Admin: 10/26/18 06:17 Dose: 975 mg Apixaban (Eliquis*) 2.5 mg PO BID [facility] Last Admin: 10/26/18 10:07 Dose: 2.5 mg Bisacodyl (Dulcolax Supp*) 10 mg HI DAILY PRN PRN Reason: constipation Cyclobenzaprine HCl (Flexeril Tab*) 10 mg PO TID PRN PRN Reason: SPASMS Last Admin: 10/24/18 20:45 Dose: 10 mg Diphenhydramine HCl (Benadryl Po*) 25 mg PO Q6H PRN PRN Reason: INSOMNIA Hydromorphone HCl (Dilaudid Inj1s*) 1 mg IV Q2H PRN PRN Reason: PAIN BREAKTHOUGH Last Admin: 10/24/18 22:41 Dose: 1 mg Lactated Ringer's (Lactated Ringers 1000 Ml Bag*) 1,000 mls @ 100 mls/hr IV PER RATE [facility] Last Admin: 10/26/18 01:33 Dose: 100 mls/hr Magnesium Hydroxide (Milk Of Magnesia Liq*) 30 ml PO BID [facility] Last Admin: 10/26/18 10:08 Dose: 30 ml Magnesium Hydroxide (Milk Of Magnesia Liq*) 30 ml PO Q6H PRN PRN Reason: constipation Ondansetron HCl (Zofran Inj*) 4 mg IV Q6H PRN PRN Reason: nausea Last Admin: 10/26/18 12:31 Dose: 4 mg Oxycodone HCl (Roxycodone Tab*) 10 mg PO Q4H PRN PRN Reason: breakthru pain Last Admin: 10/25/18 09:00 Dose: 10 mg Oxycodone/Acetaminophen (Percocet 5/325 Tab*) 2 tab PO Q3H PRN PRN Reason: PAIN - MODERATE Last Admin: 10/25/18 13:29 Dose: 2 tab Polyethylene Glycol/Electrolytes (Miralax*) 17 gm PO DAILY PRN PRN Reason: Constipation Senna (Senokot Tab*) 2 tab PO BEDTIME PRN PRN Reason: if no BM during day Tramadol HCl (Ultram*) 50 mg PO Q6H PRN PRN Reason: PAIN Last Admin: 10/25/18 04:47 Dose: 50 mg Vital Signs - 8 hr 10/26/18 10/26/18 10/26/18 07:42 08:00 09:35 Temperature 97.9 F Pulse Rate 98 108 Respiratory 16 16 Rate Blood Pressure 111/66 110/66 (mmHg) O2 Sat by Pulse 98 92 Oximetry 10/26/18 11:43 Temperature 98.7 F Pulse Rate 108 Respiratory 16 Rate Blood Pressure 134/76 (mmHg) O2 Sat by Pulse 94 Oximetry Oxygen Devices in Use Now: None Appearance: well appearing, comfortable, no increased WOB Eyes: No Scleral Icterus Ears/Nose/Mouth/Throat: Clear Oropharnyx, Mucous Membranes Moist Neck: NL Appearance and Movements; NL JVP Respiratory: Symmetrical Chest Expansion and Respiratory Effort, Clear to Auscultation Cardiovascular: RRR Abdominal: NL Sounds; No Tenderness; No Distention, No Hepatosplenomegaly Extremities: No Edema Neurological: Alert and Oriented x 3 Result Diagrams: 10/26/18 08:34 10/26/18 08:34 Microbiology and Other Data: Microbiology 10/25/18 09:23 Aerobic Blood Culture - Preliminary Blood Venous No Growth Day 1 Anaerobic Blood Culture - Preliminary No Growth Day 1 Assessment/Plan - Billing 68M with h/o L hip OA now s/p total L hip arthroplasty on 10/24 with likely aspiration pneumonitis, now improving without intervention. Patient is asymptomatic except for pain around surgical site, which is well controlled. - pain management per primary team; cont bowel regimen and Zofran prn - cont to work with PT - cont DVT PPx per ortho - monitor volume status, UOP, and bolus with IVF if pt is unable to tolerate PO - monitor for signs of infection, currently low concern - encourage IS Thank you for this interesting consult. Will sign off, but please do not hesitate to re-consult if needed for questions or concerns.
[2018-10-27 05:22] LABS: ABS Eosinophils 0.1 10^3/ul (0-0.6); ABS Monocytes 0.6 10^3/ul (0-0.8); ABS Neutrophils 3.7 10^3/ul (1.5-7.7); Eosinophil % 2.5 %; Hematocrit 31 % (42-52); Hemoglobin 10.9 g/dL (14.0-18.0); Lymphocyte % 18.3 %; Mean Corpuscular HGB Conc 35 g/dL (31-36); Mean Corpuscular Hemoglobin 29 pg (27-31); Mean Corpuscular Volume 84 fL (80-94); Mean Platelet Volume 6.4 fL (7.4-10.4); Nucleated Red Blood Cells % 0.1; Platelet Count 162 10^3/uL (150-450); Red Blood Count 3.74 10^6 /uL (4.18-5.48); Red Cell Distribution Width 13 % (10-15); White Blood Count 5.5 10^3/uL (3.5-10.8)
[2018-10-27 05:39] LABS: BUN/Creatinine Ratio 11.8 (8-20); Calcium 8.1 mg/dL (8.6-10.3); EGFR African American 141.2 (>60); EGFR Non-African American 116.7 (>60); Magnesium 2.5 mg/dL (1.9-2.7); Potassium 3.8 mmol/L (3.5-5.0)
[2018-10-27 05:55] LABS: TSH (Thyroid Stimulating Horm) 1.33 mcIU/mL (0.34-5.60)
[2018-10-27] MEDS: Acetaminophen TAB* 325 MG PO SCH (06:09)
[2018-10-27] MEDS: Magnesium Hydroxide LIQ* 30 ML UDC PO SCH (08:15)
[2018-10-27] MEDS: Apixaban* 2.5 MG TAB PO SCH (08:16)
--- NOTE | 2018-10-27 10:55 | PN ---
Progress Note - Progress Note Date of Service: 10/27/18 SOAP: Subjective: [Pt doing well. Pain managed with Tylenol. Denies SOB, CP, dizziness. Feels ready to go home] Objective: [A and O x 3, NAD L hip dressing C/D/I -- calves soft, NT, Distal gross motor and NV function intact Vital Signs: Temp Pulse Resp BP Pulse Ox 98.1 F 101 18 141/79 96 10/27/18 07:28 10/27/18 07:28 10/27/18 08:00 10/27/18 07:28 10/27/18 07:28 Laboratory Results - last 24 hr 10/27/18 10/27/18 05:11 05:11 WBC 5.5 RBC 3.74 L Hgb 10.9 L Hct 31 L MCV 84 MCH 29 MCHC 35 RDW 13 Plt Count 162 MPV 6.4 L Neut % (Auto) 67.5 Lymph % (Auto) 18.3 Wolfe % (Auto) 11.4 Eos % (Auto) 2.5 Baso % (Auto) 0.3 Absolute Neuts (auto) 3.7 Absolute Lymphs (auto) 1.0 Absolute Monos (auto) 0.6 Absolute Eos (auto) 0.1 Absolute Basos (auto) 0.0 Absolute Nucleated RBC 0.0 Nucleated RBC % 0.1 Sodium 136 Potassium 3.8 Chloride 103 Carbon Dioxide 28 Anion Gap 5 BUN 8 Creatinine 0.68 Est GFR ( Amer) 141.2 Est GFR (Non-Af Amer) 116.7 BUN/Creatinine Ratio 11.8 Glucose 102 H Calcium 8.1 L Magnesium 2.5 TSH 1.33 ] Assessment: [s/p R VICENTA POD #3] Plan: [D/C pt home - will attend outpt PT ASA 325 mg bid for DVT prophylaxis Tylenol or Percocet for pain F/U with Dr. Shah 14 days post op]
[2018-10-27 11:31] VITALS: BP 128/82
--- NOTE | 2018-10-28 14:12 | DS ---
Amended report to enter cosigning physician. DISCHARGE SUMMARY: DATE OF ADMISSION: 10/24/18 DATE OF DISCHARGE: 10/27/18 ADMITTING PHYSICIAN: Hope Shah MD* (dictated by YESSENIA Osorio). ADMITTING DIAGNOSIS: Left hip osteoarthritis. DISCHARGE DIAGNOSIS: Status post left total hip arthroplasty and possible aspiration pneumonitis. PROCEDURE: Left total hip arthroplasty. CONSULTANTS: Physical therapy, occupational therapy, medicine/pulmonology. BRIEF HISTORY: Mr. Dawkins is a 68-year-old gentleman with severe degenerative osteoarthritis of his left hip. He failed conservative treatment measures and elected to undergo a left total hip arthroplasty on 10/24/[address] Shah. HOSPITAL COURSE: Mr. Dawkins was admitted to [facility] on . He underwent an uncomplicated left total hip arthroplasty. Postoperatively , he recovered on the short stay surgical unit. His Valente catheter was removed on postoperative day 1 and he was able to urinate on his own. Postoperative day 2, he developed hypoxia and medicine/pulmonology was consulted. Dr. Pederson in addition to evaluating the patient ordered an EKG, which showed tachycardia, but no specific changes and a chest x-ray which showed patchy lower lobe infiltrates indicating possible aspiration pneumonitis. The patient was followed closely over the next couple of days and hypoxia resolved, and the patient was able to discontinue the O2 by nasal cannula. He advanced to a regular diet without difficulty and pain was well controlled with primarily Tylenol after the first day. Ultimately, vital signs and labs became stable. He was able to bear weight as tolerated on the left lower extremity. He advanced appropriately with physical therapy and occupational therapy. His DVT prophylaxis while in the hospital was Eliquis. By postoperative day #3, he was orthopedically and medically stable for discharge home with outpatient physical therapy. PHYSICAL EXAMINATION: General: On examination, the patient is noted to be calm and cooperative, in no acute distress. He is alert and oriented x3. Vital signs on day of discharge, temperature 98.1 degrees Fahrenheit, pulse rate 101, respirations 18, O2 sat on room air 96%, and blood pressure 141/79. Extremity examination of the left lower extremity demonstrates a dressing overlying the left hip, which is clean, dry, and intact. His thigh is compressible. Calf is soft and nontender. Distally, he has +2 palpable DP pulse; 5/5 ankle dorsiflexion, plantar flexion, and strength. Sensation is intact to light touch. DIAGNOSTIC STUDIES/LAB DATA: Laboratory data on day of discharge, hemoglobin 10.1, hematocrit 31. Radiographic Data: Postoperative radiograph of the left hip demonstrate left total hip arthroplasty with satisfactory prosthesis placement and no acute bony abnormalities. DISCHARGE MEDICATIONS: 1. Percocet 5/325 one to two tabs p.o. q.4 to 6 hours p.r.n. pain. 2. Aspirin 325 mg b.i.d. for DVT prophylaxis. 3. Colace 100 mg p.o. t.i.d. p.r.n. constipation. 4. Tylenol [id number] 325 mg 1 to 2 tabs q.4 to 6 hours p.r.n. pain. CONDITION ON DISCHARGE: Stable. DISCHARGE INSTRUCTIONS: Mr. Dawkins is a 68-year-old male postoperative day #3 status post left total hip arthroplasty, which was uncomplicated. He is orthopedically and medically stable to be discharged home. He will attend outpatient physical therapy. He has stable vital signs and labs. He will use aspirin 325 mg b.i.d. for DVT prophylaxis and Percocet and/or Tylenol for pain management. He will remain weightbearing as tolerated on the left lower extremity. He will follow up in the office with Dr. Shah in 14 days postop for incision check. He was instructed to call Dr. Shah or go immediately to the ER should he develop any new fever, chills, incision pain, redness, or drainage. He was instructed to go immediately to the ER should he develop chest pain or shortness of breath. YESSENIA OSORIO [id number]/[facility] #: [id number] ARVIND
== END 2018-10-27 13:05 | disposition home health service (06) | DRG 469 ==
LOC: AA 06:26 → SSU 14:53
PROVIDERS: ADMIT Orthopaedic Surgery Adult Reconstructive Orthopaedic Surgery; ATTEND Orthopaedic Surgery Adult Reconstructive Orthopaedic Surgery
PROC: 0SRB03A Replacement of Left Hip Joint with Ceramic Synthetic Substitute, Uncemented, Open Approach (ICD-10-PCS; principal; 2018-10-24 09:00)
DX: M16.12 Unilateral primary osteoarthritis, left hip (principal); M25.752 Osteophyte, left hip; J69.0 Pneumonitis due to inhalation of food and vomit; R09.02 Hypoxemia; Z85.828 Personal history of other malignant neoplasm of skin; Z79.82 Long term (current) use of aspirin; Z87.891 Personal history of nicotine dependence; Z81.1 Family history of alcohol abuse and dependence; Z80.1 Family history of malignant neoplasm of trachea, bronchus and lung
CPT/HCPCS: 36415; 71046; 72170; 80048; 83605; 83735; 83880; 84443; 85014; 85018; 85025; 85049; 87040; 88304; 88311; 93005; A9270-GY; C1713; C1776; G8978-GP-CL; G8979-GP-CI; G8987-GO-CI; G8988-GO-CI; G8989-GO-CI; J0690; J1170; J2250; J2405; J2704; J2795; J3010; J3490